=== PATIENT | female | born 1940 ===

== ENCOUNTER 2017-01-08 13:28 | Emergency (ER) | payer MEDICARE, MEDICAID ==
[2017-01-08 13:28] VITALS: BMI 27.9
[2017-01-08 13:34] VITALS: BP 165/81; PULSE 72; RESP 18; TEMP 97; O2SAT 100
--- NOTE | 2017-01-08 13:54 | ED PDOC ---
HPI: General Adult Time Seen by Provider: 01/08/17 13:34 Chief Complaint (Nursing): GI Problem Chief Complaint (Provider): Rectal pain History Per: Patient History/Exam Limitations: no limitations Additional Complaint(s): Patient is a 76 y/o female presenting to the emergency department for new onset of rectal pain described as a strong itchiness around her anus that occurs during a bowel movement. Reports taking cortisone and hydroxyzine as prescribed by her doctor with no relief of symptoms. Also notes having a CT A/P scan done approximately 15-20 days ago, with finding of diverticulitis. Denies abnormal frequency of bowel movements, constipation, bloody stool, abdominal pain, or fever. PCP: Dr. Raymon Colvin Past Medical History Vital Signs: Last Vital Signs Temp 97.0 F L 01/08/17 13:31 Pulse 72 01/08/17 13:31 Resp 18 01/08/17 13:31 BP 165/81 H 01/08/17 13:31 Pulse Ox 100 01/08/17 14:02 - Medical History PMH: Asthma (20 YRS AGO), HTN, Hypercholesterolemia Denies: Chronic Kidney Disease - Surgical History Surgical History: Cholecystectomy, Endoscopy - Family History Family History: States: No Known Family Hx - Immunization History Hx Tetanus Toxoid Vaccination: No Hx Influenza Vaccination: No Hx Pneumococcal Vaccination: No - Home Medications Home Medications: Ambulatory Orders Medication Instructions Recorded Amlodipine Besylate 5 mg PO DAILY 05/17/15 Memantine HCl [Namenda] 10 mg PO BID 05/17/15 Omeprazole [Prilosec] 20 mg PO DAILY 05/17/15 SITagliptin [Januvia] 100 mg PO DAILY 05/17/15 Valsartan [Diovan] 320 mg DAILY 05/17/15 Hard Fat/Phenylephrine [place] 1 sup RC DAILY PRN #20 sup 01/08/17 [Anusol Suppository] Phenylephrine HCl/Witch Elizabeth 1 - 2 gm TP DAILY #51 gel..gram. 01/08/17 [Preparation H Cooling Gel] - Allergies Allergies/Adverse Reactions: Allergies Allergy/AdvReac Type Severity Reaction Status Date / Time No Known Allergies Allergy Verified 06/27/14 12:39 - ECG O2 Sat by Pulse Oximetry: 100 (RA) Pulse Ox Interpretation: Normal Medical Decision Making Medical Decision Makin:54 Upon provider reevaluation patient is feeling better, is medically stable, and requires no further treatment in the ED at this time. Counseling was provided and all questions were answered regarding diagnosis. There is agreement to discharge plan. Return if symptoms persist or worsen. Scribe Attestation: Documented by Brenda Paz, acting as a scribe for PHILIPPE Guzman. Provider Scribe Attestation: All medical record entries made by the Scribe were at my direction and personally dictated by me. I have reviewed the chart and agree that the record accurately reflects my personal performance of the history, physical exam, medical decision making, and the department course for this patient. I have also personally directed, reviewed, and agree with the discharge instructions and disposition. Disposition - Clinical Impression Clinical Impression: External hemorrhoid - Patient ED Disposition Is Patient to be Admitted: No Doctor Will See Patient In The: Office Counseled Patient/Family Regarding: Diagnosis, Need For Followup - Disposition Referrals: [facility] [Outside] [facility] [Outside] Disposition: Routine/Home Disposition Time: 13:54 Condition: STABLE Prescriptions: Hard Fat/Phenylephrine Offerman [Anusol Suppository] 1 sup RC DAILY PRN #20 sup PRN Reason: Pain, Moderate (4-7) Phenylephrine HCl/Witch Elizabeth [Preparation H Cooling Gel] 1 - 2 gm TP DAILY #51 gel..gram. Forms: [employer] (Mohawk), [employer] (Amharic) Print Language: ALBANIAN
== END 2017-01-08 13:55 | disposition home or self-care (01) ==
LOC: H.ER 13:28
DX: K64.4 Residual hemorrhoidal skin tags (principal); I10 Essential (primary) hypertension

== ENCOUNTER 2017-07-25 23:23 | Emergency (ER) | payer MEDICARE, MEDICAID ==
[2017-07-25 23:24] VITALS: BMI 27.9
[2017-07-26] MEDS ORDERED: Sodium Chloride 0.9% 1,000 ML IV STA (00:38)
--- NOTE | 2017-07-26 00:54 | ED PDOC ---
History of Present Illness History of Present Illness: 77 year old female presents to ED with complaints of flu-like symptoms x1 day and has a past medical history of diabetes mellitus and HTN. (+) fever (TMAX 100 ), body aches, and headache. Confirms taking ASA at home today for pain. (-) vomiting or diarrhea. PCP: Raymon Colvin HPI: Influenza Time Seen by Provider: 07/25/17 23:30 Chief Complaint: Flu-like Symptoms Chief Complaint (Provider): Flu-Like Symptoms History Per: Patient Exam Limitations: no limitations Onset/Duration Of Symptoms: Days (x1) Symptoms include: fever, headache, bodyaches. denies: vomiting, diarrhea Risk factors for flu complications: Yes: adult > 65 years Past Medical History Reviewed: Historical Data, Nursing Documentation, Vital Signs Vital Signs: Last Vital Signs Temp 100 F H 07/25/17 23:31 Pulse 93 H 07/25/17 23:31 Resp 19 07/25/17 23:31 BP 146/78 07/25/17 23:31 Pulse Ox 96 07/25/17 23:31 - Medical History PMH: Asthma (20 YRS AGO), HTN, Hypercholesterolemia Denies: Chronic Kidney Disease - Surgical History Surgical History: Cholecystectomy, Endoscopy - Family History Family History: States: Unknown Family Hx - Living Arrangements Living Arrangements: With Family - Social History Current smoker - smoking cessation education provided: No Alcohol: None Drugs: Denies - Immunization History Hx Tetanus Toxoid Vaccination: No Hx Influenza Vaccination: No Hx Pneumococcal Vaccination: No - Home Medications Home Medications: Ambulatory Orders Medication Instructions Recorded Amlodipine Besylate 5 mg PO DAILY 05/17/15 Memantine HCl [Namenda] 10 mg PO BID 05/17/15 Omeprazole [Prilosec] 20 mg PO DAILY 05/17/15 SITagliptin [Januvia] 100 mg PO DAILY 05/17/15 Valsartan [Diovan] 320 mg DAILY 05/17/15 Hard Fat/Phenylephrine [place] 1 sup RC DAILY PRN #20 sup 01/08/17 [Anusol Suppository] Phenylephrine HCl/Witch Elizabeth 1 - 2 gm TP DAILY #51 gel..gram. 01/08/17 [Preparation H Cooling Gel] Oseltamivir [Tamiflu] 75 mg PO BID #10 cap 07/26/17 - Allergies Allergies/Adverse Reactions: Allergies Allergy/AdvReac Type Severity Reaction Status Date / Time No Known Allergies Allergy Verified 06/27/14 12:39 Review of Systems ROS Statement: Except As Marked, All Systems Reviewed And Found Negative Constitutional: Positive for: Fever, Other (body aches) Gastrointestinal: Negative for: Vomiting, Diarrhea Neurological: Positive for: Headache Physical Exam - Reviewed Nursing Documentation Reviewed: Yes Vital Signs Reviewed: Yes - Physical Exam Appears: Positive for: Non-toxic, Uncomfortable Skin: Positive for: Normal Color, Warm, Dry Eye Exam: Positive for: Normal appearance ENT: Positive for: Normal ENT Inspection Cardiovascular/Chest: Positive for: Regular Rate, Rhythm. Negative for: Murmur Respiratory: Positive for: Normal Breath Sounds. Negative for: Respiratory Distress Gastrointestinal/Abdominal: Positive for: Normal Exam, Soft. Negative for: Tenderness Extremity: Positive for: Normal ROM. Negative for: Deformity Neurologic/Psych: Positive for: Alert, Oriented. Negative for: Motor/Sensory Deficits Medical Decision Making Medical Decision Makin Initial impression: fever r/o influenza Initial plan: * Labs * NS IV * Influenza A B labs reviewed. flu negative. pt with flu like symptoms, on reeval feels better, symptoms resolved. pt will follow up with pcp. will treat for flu despite negative test as it could miss a positive flu. Scribe Attestation: Documented by Mara Dickinson acting as a scribe for Leyla Salazar MD. Scribe Attestation: All medical record entries made by the Scribe were at my direction and personally dictated by me. I have reviewed the chart and agree that the record accurately reflects my personal performance of the history, physical exam, medical decision making, and the department course for this patient. I have also personally directed, reviewed, and agree with the discharge instructions and disposition. - Laboratory Results Result Diagrams: 07/26/17 01:16 07/26/17 01:16 - ECG O2 Sat by Pulse Oximetry: 96 Disposition - Clinical Impression Clinical Impression: Influenza-like symptoms - Patient ED Disposition Is Patient to be Admitted: No Counseled Patient/Family Regarding: Studies Performed, Diagnosis, Need For Followup - Disposition Referrals: [facility] [Outside] [facility] [Outside] Disposition: Routine/Home Disposition Time: 01:00 Condition: IMPROVED Additional Instructions: follow up with your primary doctor in 1-2 days return to the ED with any worsening or concerning sympotms Prescriptions: Oseltamivir [Tamiflu] 75 mg PO BID #10 cap Instructions: Fever, Adult (DC) Forms: [facility] (Kinyarwanda) Print Language: TANZANIAN
[2017-07-26 01:19] LABS: BASO # 0.1 K/uL (0.0-0.2); BASO % 0.8 % (0.0-2.0); EOS # 0.2 K/uL (0.0-0.7); EOS % 1.2 % (0.0-4.0); HEMOGLOBIN 11.4 g/dL (12.0-16.0); LYMPH # 1.8 K/uL (1.0-4.3); LYMPH % 13.7 % (20.0-40.0); MEAN CELL VOLUME 71.6 fl (81.0-99.0); MEAN CORPUSCULAR HEMOGLOBIN 22.2 pg (27.0-31.0); MEAN CORPUSCULAR HGB CONC 31.1 g/dL (33.0-37.0); MONO # 0.7 K/uL (0.0-0.8); MONO % 5.5 % (0.0-10.0); NEUT # 10.1 K/uL (1.8-7.0); NEUT % 78.8 % (50.0-75.0); NRBC % 0.1 % (0.0-0.0); RBC 5.12 Mil/uL (3.80-5.20); RED CELL DISTRIBUTION WIDTH 15.1 % (11.5-14.5); WHITE BLOOD COUNT 12.8 K/uL (4.8-10.8)
[2017-07-26 01:29] LABS: ALB/GLOB RATIO 1.1 (1.0-2.1); ALBUMIN 3.9 g/dL (3.5-5.0); ALT/SGPT 32 U/L (9-52); AST/SGOT 19 U/L (14-36); BLOOD UREA NITROGEN 11 mg/dl (7-17); CALCIUM 10.7 mg/dL (8.4-10.2); GFR AFRICAN-AMERICAN > 60; GFR NON-AFRICAN AMERICAN > 60
[2017-07-26 03:51] VITALS: BP 120/70; PULSE 86; RESP 16; TEMP 99.4
[2017-07-29 18:33] VITALS: O2SAT 96
== END 2017-07-26 04:30 | disposition home or self-care (01) ==
LOC: H.ER 23:23
DX: J11.1 Influenza due to unidentified influenza virus with other respiratory manifestations (principal); E11.9 Type 2 diabetes mellitus without complications; I10 Essential (primary) hypertension; J45.909 Unspecified asthma, uncomplicated
CPT/HCPCS: 80053; 85025; 87804; 96374; 99283; J1885; J7040